=== PATIENT | male | born 1955 | race Caucasian/White ===

== ENCOUNTER 2021-01-04 03:41 | Inpatient (IN) | payer OTHER ==
[~2021-01-04] VITALS: Ht 175.3 cm; Wt 128.4 kg
[~2021-01-04 03:41] MED LIST: ALLERGY RELIEF10 M1 PO; ASPIR 8181 MG PO; ASPIRIN EC81 MG PO; ASPIRIN325 MG PO; BRILINTA 90 MG90 MG PO; BYDUREON P2 MG/0.65 SQ; CAPTOPRIL50 MG PO; COREG 12.5MG12.5 MG PO; COREG 3.125M3.125 MG PO; FLEXERIL 10 MG10 MG PO; FLOMAX0.4 MG PO; FLONASE 0.05% N16 GM; GLUCOPHAGE1000 MG PO; KLONOPIN TAB 00.5 MG PO; LEVAQUIN500 MG PO; LEVEMIR FL100 UNIT/1 SQ; LEVOTHYROXINE150 MCG PO; LEVOXYL175 MCG PO; LORTAB 10-3251 EACH PO; METFORMIN HCL500 MG PO; NORCO 10-325 T1 EACH PO; OMEPRAZOLE MAGN20 MG PO; PLAVIX 75 MG TA75 MG PO; PROTONIX40 M1 PO; RANITIDINE HCL300 MG PO; SIMVASTATIN40 MG PO; SPIRONOLACTONE25 MG PO; TRILIPIX135 MG PO; VITAMIN D250000 UNIT PO; ZANTAC150 MG PO; ZOCOR20 MG PO; ZYLOPRIM 100 M100 MG PO
[2021-01-04 04:15] LABS: HEMOGLOBIN 14.1 gm/dl (14.0-17.5); RED BLOOD COUNT 5.55 M/UL (4.20-5.50); WHITE BLOOD COUNT 7.7 K/UL (4.5-11.0)
[2021-01-04] MEDS ORDERED: VITAMIN D21250 MCG PO (11:03)
[2021-01-04] MEDS ORDERED: CARAFATE1 GM PO (11:06)
[2021-01-04] MEDS ORDERED: ZESTRIL2.5 MG PO (11:07)
[2021-01-04] MEDS ORDERED: VENTOLIN HFA 66.7 GM INH (11:08)
[2021-01-04] MEDS ORDERED: MIRALAX17 GM PO (11:10)
[2021-01-04] MEDS ORDERED: COLACE100 MG PO (11:10)
[2021-01-04] MEDS ORDERED: HYDROXYZINE HCL10 MG PO (11:11)
[2021-01-04] MEDS ORDERED: BUMETANIDE1 MG PO (11:12)
[2021-01-04] MEDS ORDERED: NOVOLOG FL100 UNIT/1 SQ (11:13)
[2021-01-06] MEDS ORDERED: PROTONIX 40 MG40 M1 PO (08:12)
--- NOTE | 2021-01-07 15:15 | NUR ---
TOOK OVER FOR TORITO OWEN AT 1400. PT RESTING IN HIS CHAIR CURRENTLY WITH NO COMPLAINTS. WILL CONTINUE TO MONITOR. ASSESSED PT AND NOTHING HAS CHANGED SINCE THE MORNING ASSESSMENT.
[2021-01-10 02:48] LABS: HEMOGLOBIN 13.1 gm/dl (14.0-17.5); RED BLOOD COUNT 5.23 M/UL (4.20-5.50); WHITE BLOOD COUNT 6.8 K/UL (4.5-11.0)
[2021-01-11 04:06] LABS: HEMOGLOBIN 13.6 gm/dl (14.0-17.5); RED BLOOD COUNT 5.44 M/UL (4.20-5.50); WHITE BLOOD COUNT 7.9 K/UL (4.5-11.0)
[2021-01-12 10:41] LABS: HEMOGLOBIN 13.7 gm/dl (14.0-17.5); RED BLOOD COUNT 5.41 M/UL (4.20-5.50); WHITE BLOOD COUNT 7.4 K/UL (4.5-11.0)
[2021-01-13 09:57] LABS: HEMOGLOBIN 13.4 gm/dl (14.0-17.5); RED BLOOD COUNT 5.34 M/UL (4.20-5.50); WHITE BLOOD COUNT 7.5 K/UL (4.5-11.0)
[2021-01-14 10:03] LABS: RED BLOOD COUNT 5.23 M/UL (4.20-5.50); WHITE BLOOD COUNT 6.4 K/UL (4.5-11.0)
[2021-01-14] MEDS ORDERED: LOPRESSOR50 MG PO (17:25)
[2021-01-14] MEDS ORDERED: ASPIRIN EC81 MG PO (17:25)
[2021-01-14] MEDS ORDERED: DEMADEX 20 MG T20 MG PO (17:25)
== END 2021-01-14 18:25 | disposition home health service (06) | DRG 291 ==
LOC: ER1 03:41 → CDU 05:00 → MED SURG 4 05:00
PROVIDERS: Emergency Medicine; Internal Medicine; Internal Medicine Cardiovascular Disease; Internal Medicine Infectious Disease; ADMIT Internal Medicine
PROC: B24BZZ4 Ultrasonography of Heart with Aorta, Transesophageal (ICD-10-PCS; principal; 2021-01-04)
DX: I13.0 Hypertensive heart and chronic kidney disease with heart failure and stage 1 through stage 4 chronic kidney disease, or unspecified chronic kidney disease (principal); I50.23 Acute on chronic systolic (congestive) heart failure; E66.2 Morbid (severe) obesity with alveolar hypoventilation; Z20.822 Contact with and (suspected) exposure to COVID-19; N17.9 Acute kidney failure, unspecified; Z68.41 Body mass index [BMI] 40.0-44.9, adult; I25.10 Atherosclerotic heart disease of native coronary artery without angina pectoris; E78.5 Hyperlipidemia, unspecified; J44.9 Chronic obstructive pulmonary disease, unspecified; I34.0 Nonrheumatic mitral (valve) insufficiency; E03.9 Hypothyroidism, unspecified; N40.0 Benign prostatic hyperplasia without lower urinary tract symptoms; K21.9 Gastro-esophageal reflux disease without esophagitis; N18.30 Chronic kidney disease, stage 3 unspecified; E11.40 Type 2 diabetes mellitus with diabetic neuropathy, unspecified; I25.5 Ischemic cardiomyopathy; Z95.1 Presence of aortocoronary bypass graft; Z79.4 Long term (current) use of insulin; Z52.4 Kidney donor; Z90.5 Acquired absence of kidney; Z95.810 Presence of automatic (implantable) cardiac defibrillator; I25.2 Old myocardial infarction; Z90.49 Acquired absence of other specified parts of digestive tract; Z82.49 Family history of ischemic heart disease and other diseases of the circulatory system; Z91.14 Patient's other noncompliance with medication regimen; I07.1 Rheumatic tricuspid insufficiency
CPT/HCPCS: ECHO; 36415; 71045; 71046; 80048; 80053; 80061; 81001; 82550; 82553; 82652; 82962; 83036; 83735; 83874; 83880; 84100; 84439; 84443; 84484; 85025; 85610; 85730; 93005; 93306; 94660; 96374; 99285; J1650; J1940; J2405; P9047; Q9957; U0002